=== PATIENT | female | born 2000 | race Caucasian/White ===

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

== ENCOUNTER → 2018-01-26 | Outpatient (CLI) | payer OTHER ==
[2018-01-26 11:09] LABS: BLOOD UREA NITROGEN 11 mg/dL (7-20); LITHIUM 0.7 mEq/L (0.6-1.2)
[2018-01-26 11:10] LABS: FREE T4 (FREE THYROXINE) 0.97 ng/dL (0.78-2.19); THYROID STIMULATING HORMONE 6.08 uIU/mL (0.47-4.68)
== END ==
LOC: OD 09:30
PROVIDERS: ATTEND Nurse Practitioner Psychiatric/Mental Health
DX: F31.9 Bipolar disorder, unspecified (principal); Z79.899 Other long term (current) drug therapy; Z79.891 Long term (current) use of opiate analgesic
CPT/HCPCS: 36415; 80178; 82565; 84439; 84443; 84520